=== PATIENT | female | born 1960 | race American Indian/Alaskan Native ===

== ENCOUNTER 2019-02-20 20:42 | Emergency (ER) | payer OTHER ==
--- NOTE | 2019-02-21 01:55 | Emergency Department Report ---
ED Chest Pain HPI - General Chief Complaint: Chest Pain Stated Complaint: anterior right-sided chest pain " for years" Time Seen by Provider: 02/21/19 01:00 Source: patient Mode of arrival: Ambulatory Limitations: No Limitations - History of Present Illness Initial Comments: Patient is a 59-year-old -[place] female with a history of hypertension who presents to the ED with complaint of persistent anterior chest that sided chest pain "for a while"maybe a year. 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 Patient said that the pain has been intermittent, improves with rest and worsens with activity. Patient denies shortness of breath, dizziness, fever, chills, nausea, vomiting, diaphoresis, numbness and tingling of upper extremities, change in vision, palpitations, abdominal pain, back pain, cough or sore throat, traumatic injury or fall. Patient states that she had gone to her primary care physician a few days ago for the same complaint and was referred to the ED for chest x-ray and EKG. MD Complaint: chest pain -: Gradual, month(s) (> 12 months), year(s) (> 1 year) Onset: during exertion Pain Location: substernal, right chest Pain Radiation: none Severity: moderate Severity scale (0 -10): 4 Quality: aching, sharp Consistency: intermittent Improves With: rest Worsens With: nothing, movement, other (physical activity) re: denies: nausea, vomting, diaphoresis, dyspnea, sense of impending doom Other Symptoms: denies: cough, fever, syncope, rash, acid taste in mouth, leg swelling, palpitations, burping, other Treatments Prior to Arrival: none - Related Data On Oral Contraceptives: No Previous Rx's Medication Instructions Recorded Last Taken Type Cyclobenzaprine [Flexeril] 10 mg PO Q8H PRN #15 tablet 02/21/19 Unknown Rx Naproxen [Naprosyn] 500 mg PO Q12H PRN #20 tablet 02/21/19 Unknown Rx Heart Score - HEART Score History: Slightly suspicious EKG: Normal Age: 45-65 Risk factors: 1-2 risk factors Troponin: < normal limit HEART Score: 2 - Critical Actions Critical Actions: 0-3 pts:0.9-1.7%risk of adverse cardiac event.Candidate for discharge ED Review of Systems ROS: Stated complaint: Other details as noted in HPI Comment: All other systems reviewed and negative Constitutional: denies: chills, fever Eyes: denies: eye pain, eye discharge, vision change ENT: denies: ear pain, throat pain Respiratory: denies: cough, shortness of breath, SOB with exertion, wheezing Cardiovascular: chest pain (right-sided chest pain). denies: palpitations Endocrine: no symptoms reported. denies: see HPI, flushing, intolerance to cold, increased hunger, increased thirst, unexplained weight gain, unexplained weight loss Gastrointestinal: denies: abdominal pain, nausea, diarrhea Genitourinary: denies: urgency, dysuria, discharge Musculoskeletal: denies: back pain, joint swelling, arthralgia Skin: denies: rash, lesions Neurological: denies: headache, weakness, paresthesias Psychiatric: denies: anxiety, depression Hematological/Lymphatic: denies: easy bleeding, easy bruising ED Past Medical Hx - Past Medical History Hx Hypertension: Yes - Medications Home Medications: Home Medications Medication Instructions Recorded Confirmed Last Taken Type Cyclobenzaprine [Flexeril] 10 mg PO Q8H PRN #15 tablet 02/21/19 Unknown Rx Naproxen [Naprosyn] 500 mg PO Q12H PRN #20 tablet 02/21/19 Unknown Rx ED Physical Exam - General General appearance: alert, in no apparent distress - Head Head exam: Present: atraumatic, normocephalic, normal inspection - Eye Eye exam: Present: normal appearance, PERRL, EOMI. Absent: scleral icterus, conjunctival injection Pupils: Absent: unequal - ENT ENT exam: Present: normal exam, normal orophraynx, mucous membranes moist, TM's normal bilaterally, normal external ear exam - Neck Neck exam: Present: normal inspection, full ROM - Respiratory Respiratory exam: Present: normal lung sounds bilaterally, chest wall tenderness (palpable right chest wall tenderness). Absent: respiratory distress, wheezes, rales, rhonchi, accessory muscle use, decreased breath sounds - Cardiovascular Cardiovascular Exam: Present: regular rate, normal rhythm, normal heart sounds. Absent: systolic murmur, diastolic murmur, rubs, gallop - GI/Abdominal GI/Abdominal exam: Present: soft, normal bowel sounds. Absent: distended, tenderness, hyperactive bowel sounds, hypoactive bowel sounds, organomegaly - Rectal Rectal exam: Present: deferred - Extremities Exam Extremities exam: Present: normal inspection, full ROM, normal capillary refill - Back Exam Back exam: Present: normal inspection, full ROM. Absent: tenderness, CVA tenderness (R), CVA tenderness (L), muscle spasm, paraspinal tenderness, vertebral tenderness - Neurological Exam Neurological exam: Present: alert, oriented X3, CN II-XII intact, normal gait, reflexes normal - Psychiatric Psychiatric exam: Present: normal affect, normal mood - Skin Skin exam: Present: warm, dry, intact, normal color. Absent: rash ED Course - Reevaluation(s) Reevaluation #1: 02/21/19 01:59 Patient is alert and oriented 3 and is not in distress with normal vital signs. EKG shows normal sinus rhythm with ventricular hypertrophy and [address] or T-wave abnormalities, or pathological Q waves. Chest x-ray shows no acute cardiopulmonary abnormalities. Lab test results were reviewed and are unremarkable including troponin level which was 0.01. On reevaluation, patient is resting comfortably on the chair and is in no acute distress. 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 In addition the patient's symptoms have been present for the last 12 months to rule out any coronary artery disease as a source of these symptoms even though the patient has 2 risk factors of hypertension and her age. Patient does not smoke or drink, is not diabetic and has no hyperlipidemia history. Patient was discharged home on antibiotic medications and advised to follow-up with her primary care physician as previously scheduled in the next 12 hours. Patient advised to return to the ED immediately if the symptoms get worse. CLAUDIO score - Claudio Score Age > 65: (0) No Aspirin use within the Past 7 Days: (0) No 3 or more CAD Risk Factors: (0) No 2 or more Angina events in past 24 hrs: (0) No Known CAD with more than 50% Stenosis: (0) No Elevated Cardiac Markers: (0) No ST Deviation Greater than 0.5mm: (0) No CLAUDIO Score: 0 ED Medical Decision Making - EKG Data EKG shows normal: sinus rhythm Rate: normal - EKG Data Interpretation: normal EKG 02/21/19 02:03 Normal sinus rhythm with ventricular rate of 68 bpm, and no ST or T-wave abnormalities or pathological Q waves - Radiology Data Radiology results: report reviewed, image reviewed interpreted by me: No acute cardiopulmonary abnormalities - Medical Decision Making Patient is alert and oriented 3 and is not in distress with normal vital signs. EKG shows normal sinus rhythm with ventricular hypertrophy and [address] or T-wave abnormalities, or pathological Q waves. Chest x-ray shows no acute cardiopulmonary abnormalities. Lab test results were reviewed and are unremarkable including troponin level which was 0.01. On reevaluation, patient is resting comfortably on the chair and is in no acute distress. 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 In addition the patient's symptoms have been present for the last 12 months to rule out any coronary artery disease as a source of these symptoms even though the patient has 2 risk factors of hypertension and her age. Patient does not smoke or drink, is not diabetic and has no hyperlipidemia history. Patient was discharged home on antibiotic medications and advised to follow-up with her primary care physician as previously scheduled in the next 12 hours. Patient advised to return to the ED immediately if the symptoms get worse. - Differential Diagnosis Nonspecific Chest pain; chronic costochondritis; chest wall muscle strain Critical care attestation.: If time is entered above; I have spent that time in minutes in the direct care of this critically ill patient, excluding procedure time. ED Disposition Clinical Impression: Costochondral chest pain, Muscle strain of anterior chest wall, Nonspecific chest pain Disposition: DC-01 TO HOME OR SELFCARE Is pt being admited?: No Does the pt Need Aspirin: No Condition: Stable Instructions: Chest Pain (ED) Additional Instructions: Take medications as needed for pain and muscle spasm with food, drink plenty of fluids and follow up with your primary care physician as previously scheduled today. Return to the ED immediately if symptoms get worse. Prescriptions: Cyclobenzaprine [Flexeril] 10 mg PO Q8H PRN #15 tablet PRN Reason: Muscle Spasm Naproxen [Naprosyn] 500 mg PO Q12H PRN #20 tablet PRN Reason: Pain , Severe (7-10) Referrals: MIRANDA GARCIA JR, MD [Referring] - 24 Hours Time of Disposition: 02:07 Print Language: SUDANESE
--- NOTE | 2019-02-21 02:15 | XRay Report ---
PROCEDURE: XR CHEST ROUTINE 2V TECHNIQUE: PA and lateral chest radiographs were obtained. HISTORY: CHEST PAIN COMPARISONS: None. FINDINGS: Heart: Normal. Mediastinum/Vessels: Normal. Lungs/Pleural space: Normal. Bony thorax: No acute osseous abnormality. IMPRESSION: Normal examination. This document is electronically signed by Ezio Daniels MD., February 21 2019 02:13:09 AM ET
== END 2019-02-21 02:36 | disposition home or self-care (01) ==
LOC: ED 20:42
DX: S29.011A Strain of muscle and tendon of front wall of thorax, initial encounter (principal); M94.0 Chondrocostal junction syndrome [Tietze]; I10 Essential (primary) hypertension; X50.1XXA Overexertion from prolonged static or awkward postures, initial encounter; Y93.89 Activity, other specified; Y92.89 Other specified places as the place of occurrence of the external cause; Y99.8 Other external cause status
CPT/HCPCS: 71046; 93005; 93010; 99283